=== PATIENT | male | born 1970 | race Hispanic/Latino ===

== ENCOUNTER 2018-06-02 07:29 | Emergency (ER) | payer OTHER ==
[2018-06-02 07:56] LABS: #Eosinphils 0.2 thou/uL (0.0-0.7); #Lymphocytes 0.7 thou/uL (1.20-3.40); #Monocytes 0.6 thou/uL (0.11-0.59); #Neutrophils 8.5 thou/uL (1.40-6.50); %Basophils 0.3 % (0.0-1.0); %Eosinophils 1.7 % (0.0-10.0); %Lymphocytes 7.1 % (21.0-51.0); %Monocytes 6.3 % (0.0-10.0); %Neutrophils 84.6 % (42.0-75.0); Hemoglobin 15.4 g/dL (14.0-18.0); Mean Corpuscular HGB CONC 33.2 g/dL (32.0-36.0); Mean Corpuscular Volume 90.1 fL (78.0-98.0); Mean Platelet Volume 8.1 fL (7.4-10.4); Platelet Count 203 thou/uL (130-400); RBC Distribution Width 11.9 % (11.5-14.5); Red Blood Cell (RBC) Count 5.12 mill/uL (4.70-6.10)
[2018-06-02 08:11] LABS: ALT (SGPT) 20 U/L (8-55); AST (SGOT) 15 U/L (5-34); Alkaline Phosphatase 49 U/L (40-150); Anion Gap 8 mmol/L (10-20); BUN (Urea Nitrogen) 10 mg/dL (8.9-20.6); Bilirubin, Total 0.3 mg/dL (0.2-1.2); Calc. Creatinine Clearance 0 mL/min (70-130); Carbon Dioxide 27 mmol/L (22-29); Chloride 110 mmol/L (98-107); Estimated GFR-MDRD Greater than 90; Globulin 2.3 g/dL (2.4-3.5); Glucose 99 mg/dL (70-105); Potassium 4.1 mmol/L (3.5-5.1); Protein, Total 6.3 g/dL (6.0-8.3); Sodium 141 mmol/L (136-145)
[2018-06-02] MEDS ORDERED: Ketorolac Tromethamine 30 MG/ML VIAL ONE (08:21)
--- NOTE | 2018-06-02 08:45 | CT ---
HEAD CT WITHOUT CONTRAST: DATE: 06/02/2018. COMPARISON: None. HISTORY: Syncope, altered mental status. TECHNIQUE: Axial CT imaging at 5 mm intervals from the vertex through the skull base without contrast. FINDINGS: Mild mucosal thickening of left maxillary sinus. No displaced calvarial fracture. No intracranial h emorrhage, midline shift, or mass effect. IMPRESSION: No acute findings. POS: [facility]
--- NOTE | 2018-06-02 08:46 | RAD ---
FRONTRAL RADIOGRAPH CHEST: DATE: 06/02/2018. COMPARISON: None. HISTORY: Fall, lightheaded. FINDINGS: Lungs are clear. Heart and mediastinal contours unremarkable. IMPRESSION: No acute findings. POS: [facility]
--- NOTE | 2018-06-02 09:19 | RAD ---
LEFT ELBOW 4 VIEWS: DATE: 06/02/2018. HISTORY: Fall, pain. FINDINGS: There is possible soft tissue swelling posterior to the distal left humerus. No obvious elbow joint effusion is seen. There is osteophyte formation involving the proximal ulna and the coronoid process . There is a corticated osseous density in the region of the distal humerus medially in the region o f the epicondyle suggesting an old corticated fracture fragment. Question soft tissue swelling later al to the radial head. No displaced fracture or dislocation. IMPRESSION: Chronic-appearing findings as above. Soft tissue swelling with no displaced fracture or dislocation. If symptoms persist, followup in 7-10 days advised. POS: [facility]
== END 2018-06-02 09:00 ==
LOC: ERS 07:29
DX: S09.90XA Unspecified injury of head, initial encounter (principal); S50.02XA Contusion of left elbow, initial encounter; R55 Syncope and collapse; I10 Essential (primary) hypertension; K21.9 Gastro-esophageal reflux disease without esophagitis; Z79.899 Other long term (current) drug therapy; W19.XXXA Unspecified fall, initial encounter
CPT/HCPCS: 70450; 71045; 80053; 85025; 93005; 94760; 96361; 96374; J1885